=== PATIENT | male | born 1960 | race Caucasian/White ===

== ENCOUNTER 2019-01-25 17:12 | Emergency (ER) | payer BC ==
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
[2019-01-25] MEDS ORDERED: HYDROCODONE/ACETAMINOPHEN 5-325 MG TABLET PO ONE (17:52)
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
[2019-01-25 19:03] VITALS: BP 112/77
== END 2019-01-25 19:01 | disposition home or self-care (01) ==
LOC: ER 17:12
DX: S02.2XXA Fracture of nasal bones, initial encounter for closed fracture (principal); W50.0XXA Accidental hit or strike by another person, initial encounter; Y93.75 Activity, martial arts
CPT/HCPCS: 70486; 99283